=== PATIENT | male | born 1965 | race African-American/Black ===

== ENCOUNTER 2016-09-30 05:59 | Emergency (ER) | payer OTHER ==
[~2016-09-30] VITALS: Ht 177.8 cm; Wt 68.0 kg
[~2016-09-30 05:59] MED LIST: DARV PO; Z.0.NO CURRENT MEDS
[2016-09-30 06:00] VITALS: BP 123/67; PULSE 74; RESP 16; TEMP 98.8; O2SAT 96
[2016-09-30] MEDS ORDERED: ORPHENADRINE INJ 60 MG/2 ML AMP IM ONE (06:30)
[2016-09-30] MEDS ORDERED: KETOROLAC TROMETHAMINE 60 MG/2 ML (IM) VIAL IM ONE (06:30)
[2016-09-30] MEDS ORDERED: IBUP800T23 PO (06:36)
[2016-09-30] MEDS ORDERED: ROBA500T PO (06:36)
--- NOTE | 2016-09-30 06:36 | PD ---
HPI Chief Complaint: Back/ Neck Pain or Injury Time Seen by Provider: 06:32 Travel History International Travel<30 days: No Contact w/Intl Traveler<30days: No Traveled to known affect area: No History of Present Illness HPI 51-year-old male presents to emergency department for evaluation of right sided lower back pain. Patient states the pain has been there for over a month. He believes it may be related to lifting heavy cameras at work but does not recall a specific injury. He states at times the pain radiates into his buttocks. He states the time is difficult to ambulate secondary to the pain. Denies any saddle paresthesia, loss of bowel or bladder, lower extremity weakness. Denies any urinary symptoms. No recent illnesses, fever, chills. He has no other symptoms to report. PFS Past Medical History Asthma: Yes (when a child) Diminished Hearing: No Musculoskeletal: Yes (LEFT FOOT) Past Surgical History Surgical History: No Previous Surgery Social History Alcohol Use: Yes (occasional) Tobacco Use: No Substance Use: No Allergies-Medications (Allergen,Severity, Reaction): Coded Allergies: No Known Allergies (Verified , 09/30/16) Reported Meds & Prescriptions Reported Meds & Active Scripts Active Darvocet-N 100 (Propoxyphene Napsylate/Acetam) Tab 1 Tab PO Q6 Reported No Current Meds (Miscellaneous Medication) [facility] Review of Systems Except as stated in HPI: all other systems reviewed are Neg Physical Exam Narrative GENERAL: Well-nourished male patient, ambulatory with a nonantalgic gait no acute distress SKIN: Warm and dry. HEAD: Atraumatic. Normocephalic. EYES: Pupils equal and round. No scleral icterus. No injection or drainage. ENT: No nasal bleeding or discharge. Mucous membranes pink and moist. NECK: Trachea midline. No JVD. CARDIOVASCULAR: Regular rate and rhythm. No murmur appreciated. RESPIRATORY: No accessory muscle use. Clear to auscultation. Breath sounds equal bilaterally. GASTROINTESTINAL: Abdomen soft, non-tender, nondistended. Hepatic and splenic margins not palpable. MUSCULOSKELETAL: No obvious deformities. No clubbing. No cyanosis. No edema. Mild tenderness. There is tenderness with palpation of the right sacroiliac joint. 5+ strength equal bilateral lower extremity. Sensation intact distal extremities. NEUROLOGICAL: Awake and alert. No obvious cranial nerve deficits. Motor grossly within normal limits. Normal speech. PSYCHIATRIC: Appropriate mood and affect; insight and judgment normal. Data Data Last Documented VS Vital Signs Date Time Temp Pulse Resp B/P Pulse Ox O2 Delivery O2 Flow Rate FiO2 09/30/16 06:00 98.8 74 16 123/67 96 Room Air Orders Ketorolac Inj (Toradol Inj) (09/30/16 06:30) Orphenadrine Inj (Norflex Inj) (09/30/16 06:30) MDM Medical Decision Making Medical Screen Exam Complete: Yes Emergency Medical Condition: Yes Medical Record Reviewed: Yes Differential Diagnosis Sciatica versus sacroiliitis versus lumbar strain versus discogenic pain versus radiculopathy Narrative Course 51-year-old male presents to emergency room for evaluation of low back pain. Patient appears without distress. Mild tenderness elicited palpation of the sacroiliac joint. Patient is given anti-inflammatory medication. Calcified care. Encouraged to establish care and follow-up with primary care provider. He agrees to return immediately with any acute worsening symptoms. Diagnosis Primary Impression: Low back pain Qualified Code: M54.41 - Right-sided low back pain with right-sided sciatica, unspecified chronicity Referrals: Primary Care Physician Patient Instructions: Back Pain (ED), General Instructions Departure Forms: Tests/Procedures, Work Release Special Instructions: Avoid lifting over 35 pounds until cleared by primary care provider. Additional Instructions: Ice and/or warm moist heat may help to alleviate symptoms Follow-up with primary care provider Avoid heavy lifting, bending, twisting Return immediately to the emergency department with any acute worsening of symptoms Med/Other Pt SpecificInfo: Prescription(s) given Scripts Methocarbamol (Robaxin)500 Mg [id number] Mg PO QID PRN (MUSCLE SPASM) #20 TAB Ref 0 Prov:Vera Aleman 09/30/16 Ibuprofen 800 Mg [id number] Mg PO Q8H PRN (Pain/Inflammation) #30 TAB Ref 0 Prov:Vera Aleman 09/30/16 Disposition: 01 DISCHARGE HOME Condition: Stable Vera Aleman Sep 30, 2016 06:36
== END 2016-09-30 07:02 | disposition home or self-care (01) ==
LOC: NEPB 05:59
DX: M54.5 Low back pain (principal); T73.3XXA Exhaustion due to excessive exertion, initial encounter
CPT/HCPCS: 96372; 99283; J1885; J2360